=== PATIENT | male | born 1950 | race Caucasian/White ===

== ENCOUNTER 2016-07-14 18:16 | Observation (INO) ==
[2016-07-14 20:37] LABS: MANUAL DIFF NEEDED? NO
[2016-07-14 20:40] LABS: BASO% 0.6 % (0.0-0.8); EOS# 0.44 X1000 (0.0-0.7); HEMOGLOBIN 12.8 g/dL (14.0-18.0); LYMPH# 2.14 X1000 (1.2-3.4); LYMPH% 34.2 % (20.5-51.1); MCH 25.3 PG (27-31); MCV 79.1 FL (81-99); MONO# 0.58 X1000 (0.11-0.59); MONO% 9.3 % (1.7-9.3); MPV 11.6 FL (7.4-10.4); NEUT% 48.9 % (42.2-75.2); PLT 224 X1000 (130-400); RBC 5.06 XMIL (4.7-6.1)
--- NOTE | 2016-07-14 20:48 | Diag Imaging Result Document ---
PROCEDURE NAME: CHEST-2 VIEWS - 07/14/2016 2 VIEWS OF THE CHEST: FINDINGS: There are no previous studies. There is ill-defined opacity in the lateral costophrenic sulcus of the left lower lobe. This may be in part due to atelectasis. Otherwise, the lungs are clear and the heart and pulmonary vascularity are within normal limits. IMPRESSION: Atelectasis versus pneumonia in the left base.
[2016-07-14 20:54] LABS: INR 1.1 (0.86-1.15); PROTIME 14.5 Seconds (12.1-15.5)
[2016-07-14 20:55] LABS: PTT PL 34.5 Seconds (22.6-43.9)
--- NOTE | 2016-07-14 21:05 | EKG Report ---
Test Performed on : 07/14/2016 8:43:07 PM Test Reason : admission Blood Pressure : / mmHG Vent. Rate : 077 BPM Atrial Rate : 077 BPM P-R Int : 158 ms QRS Dur : 100 ms QT Int : 400 ms P-R-T Axes : 045 -09 051 degrees QTc Int : 452 ms Normal sinus rhythm. Normal ECG No previous ECGs available Unconfirmed Result
[2016-07-14 21:16] LABS: AGAP 10; ALBUMIN 3.3 g/dL (3.5-5.0); ALKALINE PHOSPHATASE 129 U/L (32-122); BUN 6 mg/dL (8-22); CALCIUM 8.8 mg/dL (8.8-10.2); CHLORIDE 101 mmol/L (98-107); COSMO 272; GOT 19 U/L (10-34); GPT 13 U/L (10-44); SODIUM 137 mmol/L (136-145); TCO2 26 mmol/L (25-35); TOTAL PROTEIN 8.1 g/dL (6.3-8.3)
--- NOTE | 2016-07-14 21:36 | Diag Imaging Result Document ---
PROCEDURE NAME: TOE(S)-RIGHT - 07/14/2016 RIGHT FIRST TOE, 3 VIEWS: There is apparently a healing fracture of the distal phalanx of the great toe. The second toe appears swollen. This is more prominent than on the previous study of 06/04/2016. There is apparent subluxation of the fourth metatarsophalangeal joint. This may have been present previously. There is some osteopenia. IMPRESSION: 1. No definite evidence of osteomyelitis. 2. The possibility of cellulitis particularly with regard to the second toe cannot be excluded.
[2016-07-14] MEDS ORDERED: KLOR-CON PO ONE (21:40)
[2016-07-14] MEDS ORDERED: VANCOMYCIN 1 GM/NS 1 GM/250 ML IVPB IV ONE (21:46)
[2016-07-14] MEDS ORDERED: ZOSYN 3.375 GM/NS 3.375 GM/50 ML IVPB IV ONE (21:47)
[2016-07-15] MEDS ORDERED: TYLENOL PO PRN ×3 (01:24→08:22)
[2016-07-15] MEDS ORDERED: NS 1,000 ML IV PRN (01:24)
[2016-07-15] MEDS ORDERED: PHENERGAN IV PRN (01:24)
[2016-07-15] MEDS ORDERED: SODIUM CHLORIDE 0.9% INJ PRN (01:24)
[2016-07-15] MEDS ORDERED: VANCOMYCIN IV PER PHARMACY MISC SCH (01:30)
[2016-07-15] MEDS ORDERED: VANCOMYCIN 1 GM/NS 1 GM/250 ML IVPB IV ONE (02:00)
[2016-07-15] MEDS ORDERED: PERCOCET-10 PO SCH (06:15)
[2016-07-15] MEDS ORDERED: OXYCONTIN PO SCH (06:30)
[2016-07-15] MEDS ORDERED: MS CONTIN PO SCH (06:30)
[2016-07-15] MEDS ORDERED: ZOFRAN IV PRN (08:22)
[2016-07-15] MEDS: ZOSYN 3.375 GM/NS 3.375 GM/50 ML IVPB IV SCH ×3 (09:09→20:21)
[2016-07-15] MEDS: NEURONTIN PO SCH ×4 (10:44→22:27)
[2016-07-15] MEDS: EFFIENT PO SCH (10:45)
[2016-07-15] MEDS: MOTRIN PO SCH ×2 (10:45→10:54)
[2016-07-15] MEDS: ZANAFLEX PO SCH ×3 (13:57→20:20)
--- NOTE | 2016-07-15 14:22 | HISTORY AND PHYSICAL ---
CHIEF COMPLAINT: Bilateral lower extremity cellulitis and injury to right great toe. HISTORY OF PRESENT ILLNESS: This is a 65-year-old male with a history of CAD with ND in 2001, hypertension, prior CVA, as well as bilateral lower extremity cellulitis with and PVD. He presented to the emergency room complaining of an injury to his right 2nd toe , hitting it into a cabinet earlier in the day. X-ray of his right toes revealed a healing fracture of the distal phalanx of the great toe. The 2nd toes appears swollen, subluxation of the 4th metatarsophalangeal joint. No definite evidence of osteomyelitis. Cellulitis could not be excluded. Of note, he was evaluated in the ER 06/04/2016, diagnosed with cellulitis, given Clindamycin with instructions to follow with Wound Care, which he never did. He is uncertain if he completed the 7 days of Clindamycin. Cultures ultimately grew Clindamycin resistant MRSA. PAST MEDICAL HISTORY: 1. CAD, status ND in 2001. 2. Hypertension. 3. Gastroesophageal reflux disease. 4. Bilateral lower extremity cellulitis, chronic. 5. Peripheral vascular disease. PAST SURGICAL HISTORY: Sinus surgery. SOCIAL HISTORY: He smokes half a pack a day. He denies alcohol or illicit drug use. ALLERGIES: No known drug allergies. HOME MEDICATIONS: A list will be obtained. REVIEW OF SYSTEMS: A 14 point review of systems was discussed with the patient with pertinent positives stated in the HPI. He denied fever, chills, nausea, vomiting, diarrhea, constipation, black or bloody vomitus, black or bloody stools. PHYSICAL EXAMINATION: GENERAL: This is a 65-year-old male who is sitting in the bed with no distress. VITAL SIGNS: Blood pressure is 139/55 with a heart rate of 77, respirations are 18, temperature is 97.7 degrees oral with room air saturations 92-94%. HEENT: Head is normocephalic, atraumatic. Pupils equal, round, react to light. EOMs are intact. Sclerae anicteric. Mucous membranes are moist. NECK: Supple. Trachea midline. CARDIOVASCULAR: Regular rate and rhythm. S1, S2 appreciated. PULMONARY: Breath sounds are clear with no increased work of breathing noted. GASTROINTESTINAL: Soft, nontender, nondistended with bowel sounds in all 4 quadrants. : Deferred. EXTREMITIES: No clubbing, cyanosis. He does have bilateral edema up to about the knees with scabbed areas noted bilateral legs, with right more than left. DIAGNOSTICS: Laboratory: WBC is 6.2 with hemoglobin 12.8, hematocrit 40, and platelets of 224,000. INR is Sodium is 137, potassium 3, BUN 6, creatinine 0.8, with a glucose of 101. Blood cultures are pending. Toe x-ray reveals apparently a healing fracture of the distal phalanx of the great toe. The 2nd toe appears swollen, more prominently than on the previous study of 06/04 with subluxation of the 4th metatarsophalangeal joint. No definite evidence of osteomyelitis. The possibility of cellulitis with regard to the 2nd toe cannot be excluded Chest x-ray revealed atelectasis versus pneumonia in the left lower base. ASSESSMENT: 1. Bilateral lower extremity cellulitis, chronic.- failed outpatient treatment. 2. Peripheral vascular disease. 3. History of methicillin-resistant Staphylococcus aureus in wound culture right leg and foot 06/04/2016. 4. Coronary artery disease, status post myocardial infarction in 2001. 5. Hypertension. 6. Chronic pain with chronic opioid use. 7. History of cerebrovascular accident. PLAN: Patient will be admitted to the hospital. He will be placed on telemetry. Blood cultures were drawn in the emergency room. He was initially given vancomycin and Zosyn. We will continue these as he did have methicillin-resistant Staphylococcus aureus positive in May. We will identify his home medications and continue as appropriate. General Surgery will be consulted. Wound Care will be consulted. We will obtain a wound culture for any drainage. Further treatments pending hospital course. Dictated by CHAN Paz for Demarco Arenas MD cc: CHAN Paz MD [facility]
[2016-07-15] MEDS: PERCOCET-10 PO SCH (14:47)
[2016-07-15] MEDS: VANCOMYCIN 2,000 MG in NS 500 ML IV SCH (14:48)
[2016-07-15] MEDS ORDERED: NICODERM PATCH TD PRN (20:17)
[2016-07-15] MEDS: MS CONTIN PO SCH (20:20)
[2016-07-15] MEDS: LYRICA PO SCH (20:20)
[2016-07-16] MEDS ORDERED: APRESOLINE PO PRN (01:18)
[2016-07-16] MEDS: ZOSYN 3.375 GM/NS 3.375 GM/50 ML IVPB IV SCH ×4 (02:07→22:44)
[2016-07-16] MEDS: PERCOCET-10 PO SCH ×2 (02:50→15:59)
[2016-07-16] MEDS: VANCOMYCIN 2,000 MG in NS 500 ML IV SCH ×2 (02:50→22:08)
[2016-07-16] MEDS: NEURONTIN PO SCH ×4 (03:46→22:44)
[2016-07-16 06:57] LABS: AGAP 11; ALBUMIN 3.3 g/dL (3.5-5.0); ALKALINE PHOSPHATASE 138 U/L (32-122); BUN 4 mg/dL (8-22); CALCIUM 8.3 mg/dL (8.8-10.2); CHLORIDE 106 mmol/L (98-107); COSMO 280; GOT 15 U/L (10-34); GPT 11 U/L (10-44); POTASSIUM 3.6 mmol/L (3.5-5.1); SODIUM 142 mmol/L (136-145); TCO2 25 mmol/L (25-35); TOTAL PROTEIN 7.4 g/dL (6.3-8.3)
[2016-07-16 07:01] LABS: HEMATOCRIT 40.4 % (42.0-52.0); HEMOGLOBIN 12.5 g/dL (14.0-18.0); MCHC 30.9 g/dL (33-37); MCV 77.7 FL (81-99); MPV 11.7 FL (7.4-10.4); RBC 5.2 XMIL (4.7-6.1)
[2016-07-16] MEDS: LYRICA PO SCH ×2 (08:09→20:48)
[2016-07-16] MEDS: ASPIRIN EC PO SCH (08:09)
[2016-07-16] MEDS: EFFIENT PO SCH (08:09)
[2016-07-16] MEDS: PRINIVIL PO SCH (08:09)
[2016-07-16] MEDS: MS CONTIN PO SCH ×2 (08:09→20:48)
[2016-07-16] MEDS: ZANAFLEX PO SCH ×4 (08:09→20:48)
--- NOTE | 2016-07-16 08:25 | PROGRESS NOTE ---
DATE: 07/16/2016 SUBJECTIVE: Patient notes that he had a bad night last night. Did not sleep well. States that he does not feel well this morning secondary to pain. Denies any nausea, vomiting. Denies any constipation, melena. Denies any GI or issues otherwise. OBJECTIVE: Vital Signs: Reviewed. Temperature 97, pulse 88, respiratory rate 18, BP 143/115 to 199/88. Saturation 98% on room air. General: Patient is awake and alert. He is sitting on the side of the bed. He is in no respiratory distress. Neck: Supple. CV: Regular rate. Chest: Clear. Abdomen: Soft. Extremities: Moves all extremities. His right lower extremity is bandaged, clean, dry and intact from wound care. LABS: CBC normal. Potassium 3.6. Albumin 3.3. ASSESSMENT: 1. Bilateral lower extremity cellulitis, failed outpatient management secondary to intentionally not taking medications, which likely contributed to his recurrent cellulitis. 2. Known peripheral vascular disease. Certainly is not improving his overall care. 3. Methicillin-resistant Staphylococcus aureus on previous wound culture in June 01, 2016. He is currently on vancomycin. 4. Known coronary artery disease with an myocardial infarction in 2001. 5. Hypertension. The patient actually states that his blood pressure was up last night because he did not get his pain medication at 6 a.m. this morning. Discussed with him that is not usually the way that would work. However, he notes that his blood pressure at home is always 120 systolic. Currently, has been much higher than that in the hospital. Therefore, I did attempt to talk him into taking blood pressure medication at least while he is in the hospital and we can stop this if his blood pressure improves at home. 6. Chronic pain with chronic opioid use. PLAN: As noted, patient is on his home pain medications as well as Neurontin. We will add lisinopril 20 mg daily to follow his blood pressures. We will continue vancomycin per pharmacy and Zosyn until cultures return. cc: Demarco Arenas MD
--- NOTE | 2016-07-16 09:57 | VASCULAR LAB ---
PROCEDURE NAME: Arterial Bilateral Legs - 07/15/2016 REFERRING PHYSICIAN: CHAN Paz. INTERPRETING PHYSICIAN: David Robledo MD. TECH: [facility]. INDICATION: The patient has lower extremity cellulitis and multiple wounds on his toes. FINDINGS: Brachial pressure 133 systolic on the right. The right high thigh pressure is 195, right low thigh pressure 181, right calf pressure 166, right dorsalis pedis 133, right posterior tibial 126 for a right AB index of 1.0. The right great toe pressure is 79 for a right toe- brachial index of 0.59. The PVRs are mildly diminished on the right but pulsatile at every toe. On the left, the left brachial pressure is 129. The left high thigh pressure is 191, left low thigh pressure 226, left calf pressure 149, left dorsalis pedis 123, left posterior tibial 134 for a left AB index of 1.0. The left great toe pressure is 56 for a left toe-brachial index of 0.42. Again, the PVRs are mildly diminished but remain pulsatile at every toe. INTERPRETATION: This study does suggest some digital vessel disease but adequate flow to heal wounds. cc: MD Emerald Mancuso CRNP
--- NOTE | 2016-07-16 10:15 | Extremity Venous Study ---
EXAM: Venous U/S Right Leg HISTORY: RLE cellulitis COMMENT: There is compressibility of the veins of the right leg without evidence of obstruction color Doppler flow. No abnormal fluid collections are present. There is no evidence of superficial venous thrombosis. IMPRESSION: No evidence of deep or superficial venous thrombosis. Electronically signed by Etienne Abreu 07/15/2016 3:00 PM
[2016-07-16] MEDS: HYDROXYZINE PO PRN (10:25)
--- NOTE | 2016-07-16 16:45 | CONSULTATION ---
DATE OF CONSULTATION: 07/16/2016 CHIEF COMPLAINT: Lower extremity ulceration and swelling. HISTORY: This is a 65-year-old gentleman who came to the ED complaining of an injury to his right 2nd toe. X-ray revealed a fracture of his distal phalanx of the great toe. Second toe appeared swollen and cellulitis could not be excluded. There was no evidence of osteomyelitis. He was seen in the ED in early May with cellulitis and given clindamycin but did not follow up or get that filled and did not take it to treat his wounds. He reports that he sleeps sitting up all night because he cannot lie down because of his back and therefore his legs do stay swollen always. PAST MEDICAL HISTORY: Pertinent for coronary artery disease, he had a myocardial infarction in 2001. Hypertension. Gastroesophageal reflux. Bilateral lower extremity swelling and cellulitis and some peripheral vascular disease. PAST SURGICAL HISTORY: He has had previous sinus surgeries. MEDICATIONS: At home include Lyrica 300 mg b.i.d., Pravachol 80 mg daily, gabapentin 800 mg 4 times a day. MS Contin 30 mg b.i.d. Percocet 10 mg b.i.d., Effient 10 mg daily. Aspirin 325 mg daily. Ibuprofen 600 mg every 2 days. Protonix 40 mg daily, tizanidine 4 mg 4 times a day. ALLERGIES: No known drug allergies. SOCIAL HISTORY: Smokes half a pack a day. Denies alcohol or illicit drug use. REVIEW OF SYSTEMS: Primarily pertinent for the back pain as well as the lower extremity swelling. PHYSICAL EXAMINATION: General: Disheveled appearing. Vital Signs: Afebrile, heart rate 62, respiratory rate 18, blood pressure 109/62. Lungs: Bilateral breath sounds. Heart: Regular rate and rhythm. Abdomen: Soft. Femoral pulses are present. Extremities: He does have a 2+ pitting edema. He has some superficial ulceration to the right posterior calf. I only spotted shallow ulcerations of his left leg. His right 2nd toe is somewhat swollen with a small superficial ulceration on the anteromedial aspect. Difficult to palpate pedal pulses even though there maybe 1 to 2+ posterior tibial pulses. ASSESSMENT: Lower extremity edema with an adequate inflow. His arterial study did show adequate flow to heal wounds. His venous studies did not show any DVT or superficial venous thrombosis. PLAN: My recommendation would be to use Unna boots on him to be changed twice a week. Home health can do this to start with or he can come to the [facility] and schedule times twice a week to have his Unna boots changed. This may be the best way for him to get reliable care. He does have adequate arterial flow to heal his ulcerations. cc: David Robledo MD
[2016-07-16] MEDS: VANCOMYCIN 1,700 MG in NS 250 ML IV SCH (17:37)
[2016-07-16] MEDS ORDERED: PRAVACHOL PO SCH (21:00)
[2016-07-17] MEDS: PERCOCET-10 PO SCH ×2 (03:44→14:58)
[2016-07-17] MEDS: NEURONTIN PO SCH ×3 (04:41→16:48)
[2016-07-17] MEDS: ZOSYN 3.375 GM/NS 3.375 GM/50 ML IVPB IV SCH ×3 (04:41→16:49)
[2016-07-17] MEDS: VANCOMYCIN 1,700 MG in NS 250 ML IV SCH ×2 (05:54→18:13)
[2016-07-17] MEDS: HYDROXYZINE PO PRN (05:59)
[2016-07-17] MEDS: MS CONTIN PO SCH (08:38)
[2016-07-17] MEDS: PRINIVIL PO SCH (08:38)
[2016-07-17] MEDS: ASPIRIN EC PO SCH (08:38)
[2016-07-17] MEDS: EFFIENT PO SCH (08:39)
[2016-07-17] MEDS: LYRICA PO SCH (08:39)
[2016-07-17] MEDS: ZANAFLEX PO SCH ×3 (08:39→16:48)
[2016-07-17 17:21] VITALS: BP 133/78
--- NOTE | 2016-07-17 22:31 | DISCHARGE SUMMARY ---
ADMISSION DATE: 07/15/2016 DISCHARGE DATE: 07/17/2016 DIAGNOSES: 1. Bilateral lower extremity cellulitis. Failed outpatient management secondary to intentionally not taking medications. 2. Known peripheral vascular disease. 3. Methicillin-resistant Staphylococcus aureus. Wound. 4. Known coronary artery disease with myocardial infarction in 2001. 5. Hypertension. 6. Chronic opioid use. CONSULTATION: David Robledo MD. DIAGNOSTICS: 1. 07/14/2016 chest x-ray: Atelectasis versus pneumonia in the left base. 2. 07/14/2016 toe x-ray: No definite evidence of osteomyelitis. Possibility of cellulitis with regard to a fracture of the 2nd toe cannot be excluded. 3. 07/15/2016 is bilateral lower extremity arterial study revealed adequate flow to heal wounds. Has a right AV index of 1 and a left AV index of 0.42. 4. 07/15/2016 extremity venous ultrasound right leg. No evidence of deep or superficial venous thrombosis. 5. Microbiology. Blood cultures x2 are negative for growth. 6. Wound culture of right ankle revealed MRSA. HOSPITAL COURSE: Mr. Shine presented to the emergency room after injuring his right 2nd toe hitting it into a cabinet earlier in the day. X-ray revealed a fracture of the distal phalanx of the great toe with the 2nd toe appearing swollen and cellulitis not being excluded. There was no osteomyelitis. Of note he had been seen in the ED in May for cellulitis. Clindamycin was given. It ultimately grew out MRSA although he did not take the medications. He stated he did not even get them filled nor did he follow up as instructed. Of note, it did grow MRSA. He presented with bilateral edema up to about the knees with scabbed areas noted bilaterally more on the right than the left. Cultures were obtained which did reveal MRSA. Dr. Robledo did evaluate after arterial study was done. They deemed there was adequate blood flow for his wounds to heal. He did recommend Unna boots 2 times a week which the patient has opted to have done via home health versus Wound Center as he is not sure he can get a ride. While in the hospital. He received Zosyn and vancomycin IV. MRSA cultures today. Sensitivities are available and he is Bactrim sensitive. PHYSICAL EXAMINATION: Cardiovascular: Regular rate and rhythm. S1, S2 appreciated. Pulmonary: Breath sounds are clear with no increased work of breathing noted. Gastrointestinal: Abdomen is soft, nontender, nondistended with bowel sounds in all 4 quadrants. Extremities: He is edematous to just above his knees. Unna boots are bilateral. DISCHARGE VITAL SIGNS: Blood pressure is 139/80 with a heart rate of 78, respirations 18, temperature 98.2 degrees with oxygen saturations of 96-97% on room air. DISCHARGE MEDICATIONS: 1. Ibuprofen 1 tab 248 hours. 2. MS Contin 30 mg b.i.d. 3. Enteric-coated aspirin 325 daily. 4. Zanaflex 4 caps 4 times a day. 5. Pravachol 80 mg daily. 6. Lyrica 300 b.i.d. 7. Gabapentin 800, 4 times a day. 8. Oxycodone 10/325, 10 mg b.i.d. 9. Effient 10 mg daily. 10. Bactrim DS 1 b.i.d. for 14 days. FOLLOWUP: 1. He is to follow up with [facility] for nursing evaluation as well as wound care evaluation and unna boots twice a week. 2. He should follow up with his primary care physician in 2-4 weeks, sooner if needed. He will be given a referral for physician line referral also. DISPOSITION: He is being discharged home in stable condition with family members. Dictated by CHAN Paz for Demarco Arenas MD cc: CHAN Paz MD
--- NOTE | 2016-07-23 08:52 | PROVIDER DOCUMENTATION ---
This chart was entered by Radha Bolaños Scribe, acting as scribe for Ashish Leavitt CRNP. HPI-Musculoskeletal Pain/Inj - GENERAL Source: patient - HX OF PRESENT ILLNESS-MUSKULOSKELTAL Quality of Pain: reports: none Severity in ED: mild Onset/Duration: this morning Timing: still present Any recent injury?: Yes Locality of Occurance: Home Similar Symptoms Previously?: No Recently seen or treated by another doctor?: Yes - LOWER EXTREMITY PAIN/INJURY Lower Extremities Pain: 2nd toe: right Context / Method of Injury: reports: direct blow Associated Symptoms: reports: denies symptoms <Ashish eLavitt - Last Filed: 07/15/16 00:21> <Rajendra Ramirez - Last Filed: 07/15/16 01:59> - GENERAL Chief Complaint: Extremity Injury Stated Complaint: "BUSTED END OF TOE" Time Seen by Provider: 07/14/16 19:38 - HX OF PRESENT ILLNESS-MUSKULOSKELTAL Nature of Presenting Problem: 65 year old M presents to the ED with a cc of right 2nd toe injury. Pt states that he bumped it this morning and has since been bleeding. 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 PT was seen her a month ago and prescribed antibiotics for cellulitis to right posterior calf and did not improve. (Ashish Leavtit) 65 year old M presents to the ED with a cc of right 2nd toe injury. Pt states that he bumped it this morning and has since been bleeding. 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 PT was seen her a month ago and prescribed antibiotics for cellulitis to right posterior calf and did not improve. (Radha Bolaños) Review of Systems - Adult - REVIEW OF SYSTEMS - ADULT Constitutional: denies: chills, fever Eyes: reports: no symptoms reported Ears, Nose, Mouth & Throat: reports: no symptoms reported Cardiovascular: reports: no symptoms reported Respiratory: reports: no symptoms reported Gastrointestinal: denies: nausea, vomiting Genitourinary: reports: no symptoms reported Musculoskeletal: denies: muscle aches, muscle weakness Integumentary: reports: skin sores/ulcer. denies: skin thickening Neurological: reports: no symptoms reported Psychiatric: reports: no symptoms reported Endocrine: reports: no symptoms reported Hematologic/Lymphatic: reports: no symptoms reported Allergic/Immunologic: reports: no symptoms reported All Other Systems: Reviewed and Negative <Ashish Leavitt - Last Filed: 07/15/16 00:21> Past History - Adult - PAST MEDICAL HISTORY-ADULT Review of Records: reports: Nursing Assessment Review, Medications Reviewed Major Childhood Illnesses: reports: denies history Cardiovascular: reports: HTN Respiratory: reports: denies history Gastrointestinal: reports: denies history Obstetrical/Gynecological: reports: denies history Genitourinary: reports: denies history Musculoskeletal: reports: denies history Neurological: reports: denies history Endocrine/Immune: reports: denies history Other Conditions: reports: denies history - IMMUNIZATION STATUS Childhood Immunizations: See Nurse Assessment Flu Vaccine: See Nurse Assessment - FAMILY HISTORY Family History: reviewed, not pertinent <Ashish Leavitt - Last Filed: 07/15/16 00:21> Physical Exam-Injury Related - Physical Exam-Injury Related Initial Vital Signs Reviewed: Yes General Appearance: alert, obese Eyes: pink conjunctivae Head, Ears, Nose, Mouth & Throat: normocephalic/atraumatic, moist mucous membranes Neck: non-tender, full range of motion, supple, normal inspection Respiratory: no respiratory distress, no accessory muscle use, decreased breath sounds, wheezing (bilaterally). negative: respiratory distress, accessory muscle use Cardiovascular: normal peripheral pulses, regular rate, rhythm, no edema Peripheral Pulses: radial (R): 3+, radial (L): 3+, dorsalis-pedis (R): 3+, dorsalis-pedis (L): 3+ Abdominal Exam: normal bowel sounds, non tender, soft Back Exam: normal inspection, no CVA tenderness, no vertebral tenderness Extremity: erythema, inflammation, swelling (right 2nd toe, entire posterior/ anterior right toes), tenderness Integumentary: erythema, other (2nd toe purulent yellow drainage with foul smell , erythema under all toes anterior and posterior) Neurologic: grossly normal, no motor/sensory deficits Psych/Mental Status: normal mood/affect, normal thought content, normal thought process, oriented x 3 - Glascow Coma Score Best Eye Response (Tiffany): (4) open spontaneously Best Verbal Response ([place]): (5) oriented Best Motor Response (Tiffany): (6) obeys commands Tiffany Total: 15 <Ashish Leavitt - Last Filed: 07/15/16 00:21> Progress - PLAN OF CARE/RESULTS Result Diagrams: 07/14/16 20:22 07/14/16 20:22 - EKG 1 Time of EKG reading by physician:: 20:43 EKG Read and Signed by:: Rajendra Ramirez EKG Interpretation (*Must complete 3 of following elements*): Normal Rate: 77 Rhythm: NSR Clive: normal - XRAY 1 XRAY Study: Chest Impression: Abnormal (LLL vs atelectasis, prelim read by Dr. Abreu) 2 XRAY: Right XRAY Study: Foot (toes) Impression: Abnormal (negative for osteomylitis, questionable cellulitis, prelim read Dr. Abreu.) - CONSULTS/PCP/HOSPITALIST Notification #1 *Consult/PCP/Hospitalist*: Dr. Ocasio(hospitalist) Time Discussed: 00:07 Consult Disposition: Admit - CHANGE OF SHIFT REPORT (ED Provider) Report Given and Care Transferred to:: Dr. Ramirez Time of Transfer: 23:01 Items Pending: Physician Consult/Arrival <Ashish Leavitt - Last Filed: 07/15/16 00:21> - PLAN OF CARE/RESULTS Result Diagrams: 07/14/16 20:22 07/14/16 20:22 <Rajendra Ramirez - Last Filed: 07/15/16 01:59> - PLAN OF CARE/RESULTS Progress/Plan/Lab Results: Vital Signs - 8 hr 07/14/16 18:40 07/14/16 23:44 Temperature 98 F 98.0 F Pulse Rate 78 84 Respiratory Rate 18 18 Blood Pressure 133/70 172/106 O2 Sat by Pulse Oximetry 96 95 Laboratory Results - last 24 hr 07/14/16 07/14/16 07/14/16 20:22 20:22 20:22 WBC 6.25 RBC 5.06 Hgb 12.8 L Hct 40.0 L MCV 79.1 L MCH 25.3 L MCHC 32.0 L RDW Std Deviation 14.9 H Plt Count 224 MPV 11.6 H Immature Gran % (Auto) 0.0 Neut % (Auto) 48.9 Lymph % (Auto) 34.2 [place] % (Auto) 9.3 Eos % (Auto) 7.0 Baso % (Auto) 0.6 Immature Gran # (Auto) 0.00 Neut # (Auto) 3.05 Lymph # (Auto) 2.14 [place] # (Auto) 0.58 Eos # (Auto) 0.44 Baso # (Auto) 0.04 PT INR APTT (Factor Assay) Sodium 137 Potassium 3.0 L Chloride 101 Carbon Dioxide 26 Anion Gap 10 BUN 6 L Creatinine 0.8 Estimated GFR/1.73 m2 > 60 BUN/Creatinine Ratio 8 Glucose 101 Calculated Osmolality 272 Calcium 8.8 Total Bilirubin 0.30 AST 19 ALT 13 Alkaline Phosphatase 129 H Total Protein 8.1 Albumin 3.3 L Globulin 5.0 Albumin/Globulin Ratio 1.0 Plasma Lactate 1.6 07/14/16 20:22 WBC RBC Hgb Hct MCV MCH MCHC RDW Std Deviation Plt Count MPV Immature Gran % (Auto) Neut % (Auto) Lymph % (Auto) [place] % (Auto) Eos % (Auto) Baso % (Auto) Immature Gran # (Auto) Neut # (Auto) Lymph # (Auto) [place] # (Auto) Eos # (Auto) Baso # (Auto) PT 14.5 INR 1.10 APTT (Factor Assay) 34.5 Sodium Potassium Chloride Carbon Dioxide Anion Gap BUN Creatinine Estimated GFR/1.73 m2 BUN/Creatinine Ratio Glucose Calculated Osmolality Calcium Total Bilirubin AST ALT Alkaline Phosphatase Total Protein Albumin Globulin Albumin/Globulin Ratio Plasma Lactate Orders Category Date Time Status Admit - [facility] Routine AdmDCTranf 07/15/16 01:24 Ordered Activity - Bed Rest with BRP ORDERED Care 07/15/16 01:24 Active Activity - Up with Assistance ORDERED Care 07/15/16 01:24 Active Intake and Output-Strict ORDERED Care 07/15/16 01:24 Active Nursing [[facility]. NRSG Communication Order] DIRECTED Care 07/14/16 19:58 Active Saline Loc NOW Care 07/14/16 19:56 Active Vital Signs Order Q 8-HR ASSESS Care 07/15/16 01:24 Active Heart Healthy Diet Diet 07/15/16 01:26 Active CHEST-2 VIEWS [RAD] Stat Exams 07/14/16 19:57 Completed TOE(S)-RIGHT [RAD] Stat Exams 07/14/16 19:57 Completed BLOOD CULTURE [BLDCUL] Stat Lab 07/14/16 20:29 Results CBC WITH ELECTRONIC DIFF [HEME] Stat Lab 07/14/16 20:22 Completed COMPREHENSIVE METABOLIC PANEL [CHEM] Stat Lab 07/14/16 20:22 Completed LACTATE, PLASMA [CHEM] Stat Lab 07/14/16 20:22 Completed [address]IME WITH INR PL [COAG] Stat Lab 07/14/16 20:[address] [COAG] Stat Lab 07/14/16 20:22 Completed UA NIMS W/REFLEX CULT PL [URINALYSIS] Stat Lab 07/14/16 19:59 Ordered 0.9% Sodium Chloride Inj [Ns] 1,000 ml Med 07/15/16 01:24 Active IV 100 mls/hr Acetaminophen [Tylenol] Med 07/15/16 01:24 Active 650 mg PO PRN PRN Pharmacy Order [Vancomycin IV Per Pharmacy] Med 07/15/16 01:30 Ordered 1 each MISC DIRECTED Piperacil/Tazobact 3.375 gm/Ns [Zosyn 3.375 gm/Ns] Med 07/14/16 21:47 Discontinued 3.375 gm in 50 ml IV NOW Potassium Chloride E.r. [Klor-Con] Med 07/14/16 21:40 Discontinued 40 meq PO NOW ONE Promethazine [Phenergan] Med 07/15/16 01:24 Active 12.5 mg IV Q6H PRN PRN Sodium Chloride 0.9% Med 07/15/16 01:24 Active 10 ml INJ PRN PRN Vancomycin 1 gm/Ns Med 07/14/16 21:46 Discontinued 1 gm in 250 ml IV NOW Telemetry [OM.EQ] Routine Oth 07/15/16 01:24 Active EKG [EKG] Stat Ther 07/14/16 19:56 Draft US [Venous U/S Right Leg] Stat Ther 07/14/16 21:57 Ordered Transfer/Admit Order [TRANSFER] Routine Transfer 07/15/16 01:29 Ordered 2152- Dr. Ocasio paged [phone]- Dr. Ocasio paged [phone]- Dr. Ocasio pagemonique [phone]- Dr. Ocasio pagemonique [phone]- Dr. Ocasio cell phone called by Dr. Ramirez [phone][facility] situation and stated she would try and get in touch with him. (Radha Bolaños) Departure - Departure Time of Disposition Decision: 21:42 Certified Medical Emergency: Emergent - Critical Care Note This patient required my direct & personal management of CC.: No <Ashish Leavitt - Last Filed: 07/15/16 00:21> <Rajendra Ramirez - Last Filed: 07/15/16 01:59> - Departure DIAGNOSIS: Cellulitis, Pneumonia Disposition: ADMITTED INPATIENT 09 Condition: Stable Attestation - Physician/ CLARENCE Attestation Patient care was provided by Advanced Practice Provider:: Yes Advanced Practice Provider:: Ashish Leavitt Advanced Practice Provider documentation review:: The Mid-level provider documentation, treatment plan and medical decision making was reviewed by the physician who agrees with all treatment and medical decision making by the MLP. The physician spent face to face time with patient:: Yes ([id number]) Advanced Practice Provider documentation review:: The physician spent face to face time with this patient and agrees with all MLP documentation, treatment, and medical decision making by the MLP. See provider notes for further information. <Ashish Leavitt - Last Filed: 07/15/16 00:21> This chart was documented by the indicated scribe, (Radha Bolaños, Nanette) and accurately reflects the services I performed and decisions made by me, Ashish Leavitt CRNP, as attested by the provider's signature.
== END 2016-07-17 18:30 | disposition home health service (06) ==
LOC: P.ED 18:16 → INTOOBSV 07-15 01:45 → P.MEDSURG 07-15 01:45 → SUATTDRO 07-15 01:45
PROVIDERS: ATTEND Family Medicine